=== PATIENT | female | born 1960 | race African-American/Black ===

== ENCOUNTER 2018-01-25 11:08 | Inpatient (IN) | payer MEDICARE, MEDICAID ==
--- NOTE | 2018-01-25 12:10 | ED Physician Chart ---
ED Chief Complaint/HPI - Patient Information Date Seen:: 01/25/18 Time Seen:: 11:50 Chief Complaint:: increased agitation History of Present Illness:: Patient has reportedly been increasingly agitated and striking at the staff [facility]. She denies ever having struck anyone. Patient had her G-tube removed 2 days ago. Allergies:: Allergies Allergy/AdvReac Type Severity Reaction Status Date / Time No Known Allergies Allergy Verified 01/25/18 11:49 Vitals:: Vital Signs - 8 hr 01/25/18 11:49 Temp 97.8 F HR 79 RR 16 BP 101/75 O2 Sat % 98 Historian:: Patient Review:: Transfer documents Reviewed ED Review of Systems - Review of Systems General/Constitutional: No fever, No chills Skin: No skin lesions Head: No headache Eyes: No loss of vision ENT: No earache Neck: No neck pain, No swelling Cardio Vascular: No chest pain, No palpitations GI: No nausea, No vomiting, No diarrhea G/U: No dysuria Musculoskeletal: No bone or joint pain, No back pain, No muscle pain Psychiatric: No prior psych history Hematopoietic: No bruising Allergic/Immuno: No urticaria Neurological: No syncope, No focal symptoms ED Past Medical History - Past Medical History Past Medical History: PUD/GERD, Other (anxiety; dysphagia) Family History: HTN Social History: Non Smoker, No Alcohol Surgical History: Hysterectomy, Psychiatricy History: Other (anxiety) Medication: Reviewed ED Physical Exam - Physical Examination General/Constitutional: Awake, Well-developed, well-nourished, Alert, No distress, GCS 15, Non-toxic appearing, Ambulatory Other Gen/Cons comments:: Patient was alert and oriented to the correct date Head: Atraumatic Eyes: Lids, conjuctiva normal, PERRL, EOMI Skin: Nl inspection, No rash, No skin lesions, No ecchymosis, Well hydrated, No lymphadenopathy ENMT: External ears, nose nl, Nasal exam nl Other ENMT comments:: No upper teeth; 3 out of 4 peridontal disease lower gum Neck: Nontender, Full ROM w/o pain, No JVD, No nuchal rigidity, No bruit, No mass, No stridor Respiratory: Nl effort/Exclusion, Clear to Auscultation, No Wheeze/Rhonchi/Rales Cardio Vascular: RRR, No murmur, gallop, rubs, NL S1 S2 GI: No tenderness/rebounding/guarding, No organomegaly, No hernia, Normal BS's, Nondistended, No mass/bruits, No McBurney tenderness : No CVA tenderness Extremities: No tenderness or effusion, Full ROM, normal strength in all extremities, No edema, Normal digits & nails Neuro/Psych: Alert/oriented, DTR's symmetric, Normal sensory exam, Normal motor strength, Judgement/insight normal, Mood normal, Normal gait, No focal deficits Misc: Normal back, No paraspinal tenderness ED Labs/Radiology/EKG Results - Lab Results Results: Laboratory Results - last 24 hr 01/25/18 01/25/18 01/25/18 11:50 12:17 12:17 WBC 5.4 RBC 4.75 Hgb 14.5 Hct 43.9 MCV 92.5 MCH 30.6 MCHC Differential 33.1 RDW 11.4 L Plt Count 371 MPV 7.7 Neutrophils % 45.0 Lymphocytes % 45.3 Monocytes % 6.6 Eosinophils % 2.4 Basophils % 0.7 Sodium 136 Potassium 4.2 Chloride 104 Carbon Dioxide 24.4 Anion Gap 11.8 BUN 11 Creatinine 0.5 L Est GFR ( Amer) > 60.0 Est GFR (Non-Af Amer) > 60.0 BUN/Creatinine Ratio 22.0 Glucose 102 Calcium 9.7 Total Bilirubin 0.3 AST 14 ALT 10 Alkaline Phosphatase 68 Total Protein 7.7 Albumin 4.2 Globulin 3.5 Albumin/Globulin Ratio 1.2 Triglycerides 84 Cholesterol 143 LDL Cholesterol Direct 92 HDL Cholesterol 37 Urine Source CLEAN C Urine Color YELLOW Urine Clarity CLEAR Urine pH 7.0 Ur Specific [place] 1.010 Urine Protein NEGATIVE Urine Glucose (UA) NEGATIVE Urine Ketones NEGATIVE Urine Blood NEGATIVE Urine Nitrate NEGATIVE Urine Bilirubin NEGATIVE Urine Urobilinogen 1.0 Ur Leukocyte Esterase TRACE H Urine RBC NONE SEEN Urine WBC 2-5 Ur Epithelial Cells OCCASIONAL Urine Bacteria FEW - EKG Interpretations Rate & Rhythm: normal sinus rhythm with a rate of 68 Loyal: normal Comments:: Concave ST elevations ED Septic Shock - . Is Septic Shock (SBP<90, OR Lactate>4 mmol\L) present?: No - <6hrs of presentation: Vital Signs: Vital Signs - 8 hr 01/25/18 11:49 Temp 97.8 F HR 79 RR 16 BP 101/75 O2 Sat % 98 ED Reassessment (Disposition) - Reassessment Reassessment Condition:: Unchanged - Diagnosis Diagnosis:: Agitation; history of anxiety - Patient Disposition Admitted to:: [facility] Admitting Medical Physician:: Lara Brandt Admitting Psych Physician:: Cynthia Barcenas
[2018-01-25 12:23] LABS: % BASOPHILS 0.7 % (0.0-2.0); % EOSINOPHILS 2.4 % (0.0-5.0); % LYMPHOCYTES 45.3 % (20.0-50.0); % MONOCYTES 6.6 % (2.0-10.0); EOSINOPHILE ABSOLUTE 0.1 Th/cmm (0.1-0.4); HEMATOCRIT 43.9 % (41.0-60); HEMOGLOBIN 14.5 gm/dL (12-16); LYMPHOCYTE ABSOLUTE 2.5 Th/cmm (1.5-3.0); MEAN CELL VOLUME 92.5 fl (81-100); MEAN CORPUSCULAR HEMOGLOBIN 30.6 pg (27.0-31.0); MEAN CORPUSCULAR HGB CONC 33.1 pg (28.0-36.0); MEAN PLATELET VOLUME 7.7 fl; MONOCYTE ABSOLUTE 0.4 Th/cmm (0.3-1.0); NEUTROPHILE ABSOLUTE 2.4 Th/cmm (1.8-8.0); PLATELET COUNT 371 Th/cmm (150-400); RED BLOOD COUNT 4.75 Mil/cmm (3.80-5.10); RED CELL DISTRIBUTION WIDTH 11.4 % (11.5-20.0); WHITE BLOOD COUNT 5.4 Th/cmm (4.8-10.8)
[2018-01-25 12:32] LABS: URINE SOURCE CLEAN C
[2018-01-25 12:40] LABS: ALB/GLOB RATIO 1.2 (1.0-1.8); ALBUMIN 4.2 gm/dL (3.7-5.3); ALKALINE PHOSPHATASE 68 U/L (34-104); ANION GAP 11.8 (7.0-16.0); BILIRUBIN,TOTAL 0.3 mg/dL (0.3-1.0); BUN - UREA NITROGEN 11 mg/dL (7-25); CALCIUM SERUM 9.7 mg/dL (8.6-10.3); CARBON DIOXIDE 24.4 mEq/L (21.0-31.0); CHLORIDE 104 mEq/L (98-107); CHOLESTEROL 143 mg/dL (<200); CREATININE - SERUM 0.5 mg/dL (0.6-1.2); GFR AFRICAN-AMERICAN > 60.0 ml/min (>90); GFR NON AFRICAN-AMERICAN > 60.0 ml/min; GLUCOSE 102 mg/dL (70-105); HDL -HIGH DENSITY LIPOPROTEIN 37 mg/dL (23-92); POTASSIUM SERUM 4.2 mEq/L (3.5-5.1); SGOT 14 U/L (13-39); SGPT/ALT 10 U/L (7-52); SODIUM SERUM 136 mEq/L (136-145); TOTAL PROTEIN,SERUM 7.7 gm/dL (6.0-8.3); TRIGLYCERIDES 84 mg/dL (<150)
[2018-01-25 12:41] LABS: URINE BILIRUBIN NEGATIVE (NEGATIVE); URINE BLOOD NEGATIVE (NEGATIVE); URINE GLUCOSE (UA) NEGATIVE (NEGATIVE); URINE KETONE NEGATIVE (NEGATIVE); URINE LEUKOCYTE ESTERASE TRACE (NEGATIVE); URINE MICROSCOPIC INDICATED? YES; URINE NITRATE NEGATIVE (NEGATIVE); URINE PROTEIN NEGATIVE (NEGATIVE)
[2018-01-25 12:43] LABS: URINE CLARITY CLEAR (CLEAR); URINE COLOR YELLOW
[2018-01-25 12:51] LABS: URINE BACTERIA FEW /hpf (NONE SEEN); URINE EPITHELIAL CELLS OCCASIONAL /lpf (FEW); URINE RBC NONE SEEN /hpf (0-5)
[2018-01-25] MEDS ORDERED: Magnesium Hydroxide (MOM) 30 mL UDC PO PRN ×2 (17:05→19:13)
[2018-01-25] MEDS ORDERED: Maalox 30 mL Cup PO PRN (17:05)
[2018-01-25 17:13] VITALS: BP 112/76
[2018-01-25] MEDS ORDERED: Hydrocodone/APAP 5mg/325mg Tab PO PRN (19:13)
[2018-01-25] MEDS: Saline 0.65% Nasal Spray NS SCH (21:17)
[2018-01-26] MEDS: Saline 0.65% Nasal Spray NS SCH ×6 (02:42→20:38)
[2018-01-26] MEDS: Pantoprazole 40 mg EC Tab PO SCH (06:45)
[2018-01-26] MEDS ORDERED: Non-Formulary Item 1 EA (Multivitamin [Multivitamins] 1 TAB) PO SCH (09:00)
[2018-01-26] MEDS ORDERED: Non-Formulary Item 1 EA (Cran/Vitc/Mannose/Fos/Bromeln [Uti-Stat Liquid] 30 ML) PO SCH (09:00)
[2018-01-26] MEDS: Chlorhexidine Gluconate 0.12% 480mL Bottle MM SCH ×2 (09:09→16:46)
[2018-01-26] MEDS: Multivitamin Tab PO SCH (09:10)
--- NOTE | 2018-01-26 16:15 | History & Physical ---
ADMIT DATE: 01/26/2018 CHIEF COMPLAINT: Agitation. HISTORY OF PRESENT ILLNESS: This is a 57-year-old female who is admitted to the Geropsych Unit who has been having a 1-day history of agitation and combativeness towards nursing staff at the nursing facility. PAST MEDICAL HISTORY: GERD, anxiety, dysphagia. FAMILY HISTORY: Noncontributory. SOCIAL HISTORY: The patient is a custodial resident. SURGICAL HISTORY: Hysterectomy, . MEDICATIONS: See medication list. REVIEW OF SYSTEMS: GENERAL: Denies any fevers and chills. CARDIOVASCULAR: Denies chest pain. RESPIRATORY: Denies shortness of breath. GASTROINTESTINAL: Denies nausea, vomiting, abdominal pain. GENITOURINARY: Denies increased frequency or dysuria. NEUROLOGIC: No headaches, seizures, or syncope. All other systems are reviewed and are negative. PHYSICAL EXAMINATION: GENERAL: The patient is a well-developed, well nourished, in no apparent distress. VITAL SIGNS: Temperature 98.0, heart rate 77, blood pressure 101/60, respirations 18, O2 saturation 100%. HEENT: Head; normocephalic, atraumatic. NECK: Supple. No mass. LUNGS: Clear bilaterally. HEART: Regular rate and rhythm. ABDOMEN: Soft, nontender. LABORATORY DATA: WBC 5.4, H and H 14.5 and 43.9, platelet of 371. Sodium 136, potassium 4.2, chloride 104, BUN 11, creatinine 0.5. ASSESSMENT: Agitation, gastroesophageal reflux disease, anxiety. PLAN: The patient is to continue medications from custodial. Fall precautions will be initiated. We will get patient's hemoglobin A1c. We will continue to monitor this patient. JOB# [id number]
[2018-01-27] MEDS: Saline 0.65% Nasal Spray NS SCH ×5 (00:08→15:25)
[2018-01-27] MEDS: Pantoprazole 40 mg EC Tab PO SCH (06:57)
[2018-01-27] MEDS: Multivitamin Tab PO SCH (08:34)
[2018-01-27] MEDS: Chlorhexidine Gluconate 0.12% 480mL Bottle MM SCH ×2 (09:16→16:16)
--- NOTE | 2018-01-27 16:11 | Internal Medicine Prog Note ---
Internal Medicine Subjective - Subjective Service Date: 01/27/18 Patient seen and examined:: with staff Patient is:: awake Per staff patient has:: tolerating meds Internal Medicine Objective - Results Result Diagrams: 01/25/18 12:17 01/25/18 12:17 Recent Labs: Laboratory Last Values WBC 5.4 Th/cmm (4.8-10.8) 01/25/18 12:17 RBC 4.75 Mil/cmm (3.80-5.10) 01/25/18 12:17 Hgb 14.5 gm/dL (12-16) 01/25/18 12:17 Hct 43.9 % (41.0-60) 01/25/18 12:17 MCV 92.5 fl (81-100) 01/25/18 12:17 MCH 30.6 pg (27.0-31.0) 01/25/18 12:17 MCHC Differential 33.1 pg (28.0-36.0) 01/25/18 12:17 RDW 11.4 % (11.5-20.0) L 01/25/18 12:17 Plt Count 371 Th/cmm (150-400) 01/25/18 12:17 MPV 7.7 fl 01/25/18 12:17 Neutrophils % 45.0 % (40.0-80.0) 01/25/18 12:17 Lymphocytes % 45.3 % (20.0-50.0) 01/25/18 12:17 Monocytes % 6.6 % (2.0-10.0) 01/25/18 12:17 Eosinophils % 2.4 % (0.0-5.0) 01/25/18 12:17 Basophils % 0.7 % (0.0-2.0) 01/25/18 12:17 Sodium 136 mEq/L (136-145) 01/25/18 12:17 Potassium 4.2 mEq/L (3.5-5.1) 01/25/18 12:17 Chloride 104 mEq/L (98-107) 01/25/18 12:17 Carbon Dioxide 24.4 mEq/L (21.0-31.0) 01/25/18 12:17 Anion Gap 11.8 (7.0-16.0) 01/25/18 12:17 BUN 11 mg/dL (7-25) 01/25/18 12:17 Creatinine 0.5 mg/dL (0.6-1.2) L 01/25/18 12:17 Est GFR ( Amer) > 60.0 ml/min (>90) 01/25/18 12:17 Est GFR (Non-Af Amer) > 60.0 ml/min 01/25/18 12:17 BUN/Creatinine Ratio 22.0 01/25/18 12:17 Glucose 102 mg/dL (70-105) 01/25/18 12:17 Calcium 9.7 mg/dL (8.6-10.3) 01/25/18 12:17 Total Bilirubin 0.3 mg/dL (0.3-1.0) 01/25/18 12:17 AST 14 U/L (13-39) 01/25/18 12:17 ALT 10 U/L (7-52) 01/25/18 12:17 Alkaline Phosphatase 68 U/L (34-104) 01/25/18 12:17 Total Protein 7.7 gm/dL (6.0-8.3) 01/25/18 12:17 Albumin 4.2 gm/dL (3.7-5.3) 01/25/18 12:17 Globulin 3.5 gm/dL 01/25/18 12:17 Albumin/Globulin Ratio 1.2 (1.0-1.8) 01/25/18 12:17 Triglycerides 84 mg/dL (<150) 01/25/18 12:17 Cholesterol 143 mg/dL (<200) 01/25/18 12:17 LDL Cholesterol Direct 92 mg/dL (75-193) 01/25/18 12:17 HDL Cholesterol 37 mg/dL (23-92) 01/25/18 12:17 TSH 0.97 uIU/ml (0.34-5.60) 01/25/18 12:17 Urine Source CLEAN C 01/25/18 11:50 Urine Color YELLOW 01/25/18 11:50 Urine Clarity CLEAR (CLEAR) 01/25/18 11:50 Urine pH 7.0 (4.6 - 8.0) 01/25/18 11:50 Ur Specific [place] 1.010 (1.005-1.030) 01/25/18 11:50 Urine Protein NEGATIVE mg/dL (NEGATIVE) 01/25/18 11:50 Urine Glucose (UA) NEGATIVE mg/dL (NEGATIVE) 01/25/18 11:50 Urine Ketones NEGATIVE mg/dL (NEGATIVE) 01/25/18 11:50 Urine Blood NEGATIVE (NEGATIVE) 01/25/18 11:50 Urine Nitrate NEGATIVE (NEGATIVE) 01/25/18 11:50 Urine Bilirubin NEGATIVE (NEGATIVE) 01/25/18 11:50 Urine Urobilinogen 1.0 E.U./dL (0.2 - 1.0) 01/25/18 11:50 Ur Leukocyte Esterase TRACE (NEGATIVE) H 01/25/18 11:50 Urine RBC NONE SEEN /hpf (0-5) 01/25/18 11:50 Urine WBC 2-5 /hpf (0-5) 01/25/18 11:50 Ur Epithelial Cells OCCASIONAL /lpf (FEW) 01/25/18 11:50 Urine Bacteria FEW /hpf (NONE SEEN) 01/25/18 11:50 RPR NONREACTIVE (NONREACTIVE) 01/25/18 12:17 - Physical Exam Vitals and I&O: Vital Signs Temp 98.0 F 01/27/18 14:48 Pulse 74 01/27/18 14:48 Resp 20 01/27/18 14:48 BP 118/69 01/27/18 14:48 Pulse Ox 97 01/27/18 14:48 Intake & Output 01/26/18 01/27/18 01/27/18 18:59 06:59 18:59 Intake Total 1200 Balance 1200 Intake: Oral 1200 Other: # Bowel Movements 1 Active Medications: Current Medications Acetaminophen (Tylenol) 650 mg PO Q4HR PRN PRN Reason: Pain (Mild) Stop: 03/26/18 19:12 Acetaminophen/Hydrocodone Bitart ([place] 5mg/325mg) 1 tab PO Q6HR PRN PRN Reason: Pain (Moderate) Stop: 03/26/18 19:12 Al Hydrox/Mg Hydrox/Simethicone (Maalox) 30 ml PO Q4HR PRN PRN Reason: GI DISTRESS Stop: 03/26/18 17:04 Chlorhexidine Gluconate (Peridex) 15 ml MM BID [facility] Stop: 03/27/18 08:59 Last Admin: 01/27/18 09:16 Dose: Not Given Docusate Sodium (Colace) 100 mg PO DAILY [facility] Stop: 03/27/18 08:59 Last Admin: 01/27/18 08:34 Dose: 100 mg Ibuprofen (Motrin) 800 mg PO Q8HR PRN PRN Reason: Pain (Mild) Stop: 03/26/18 19:12 Magnesium Hydroxide (Milk Of Magnesia) 30 ml PO PRN PRN PRN Reason: Constipation Stop: 03/26/18 19:12 Metoclopramide HCl (Reglan) 10 mg PO TID [facility] Stop: 03/26/18 20:59 Last Admin: 01/27/18 15:11 Dose: Not Given Multivitamins/Vitamin C (Theragran) 1 tab PO DAILY [facility] Stop: 03/27/18 08:59 Last Admin: 01/27/18 08:34 Dose: 1 tab Pantoprazole Sodium (Protonix) 40 mg PO QDAC [facility] Stop: 03/27/18 07:29 Last Admin: 01/27/18 06:57 Dose: 40 mg Quetiapine Fumarate (Seroquel) 12.5 mg PO BID [facility]; Protocol Stop: 03/27/18 16:59 Last Admin: 01/27/18 08:35 Dose: 12.5 mg Senna (Senna) 8.6 mg PO HS [facility] Stop: 03/26/18 20:59 Last Admin: 01/26/18 20:25 Dose: 8.6 mg Sodium Chloride ([place] Nasal [place]) 1 spr NS Q4HR [facility] Stop: 03/26/18 19:59 Last Admin: 01/27/18 15:25 Dose: Not Given Trazodone HCl (Desyrel) 50 mg PO HS [facility]; Protocol Stop: 03/26/18 20:59 Last Admin: 01/26/18 20:25 Dose: 50 mg Zolpidem Tartrate (Ambien) 5 mg PO HS PRN PRN Reason: Insomnia Stop: 03/26/18 17:04 General: alert HEENT: NC/AT, PERRLA Neck: Supple Lungs: CTAB Cardiovascular: RRR, Normal S1 Abdomen: soft, non-tender Internal Medicine Assmt/Plan - Assessment Assessment: agitation gerd anxiety - Plan Plan: fall precautions cpm
[2018-01-28] MEDS: Pantoprazole 40 mg EC Tab PO SCH (06:52)
[2018-01-28] MEDS: Saline 0.65% Nasal Spray NS SCH ×2 (08:10→12:17)
[2018-01-28] MEDS: Multivitamin Tab PO SCH (08:50)
[2018-01-28] MEDS: Chlorhexidine Gluconate 0.12% 480mL Bottle MM SCH (08:55)
--- NOTE | 2018-01-28 13:25 | Internal Medicine Prog Note ---
Internal Medicine Subjective - Subjective Service Date: 01/28/18 Patient is:: awake Per staff patient has:: tolerating meds Internal Medicine Objective - Results Result Diagrams: 01/25/18 12:17 01/25/18 12:17 Recent Labs: Laboratory Last Values WBC 5.4 Th/cmm (4.8-10.8) 01/25/18 12:17 RBC 4.75 Mil/cmm (3.80-5.10) 01/25/18 12:17 Hgb 14.5 gm/dL (12-16) 01/25/18 12:17 Hct 43.9 % (41.0-60) 01/25/18 12:17 MCV 92.5 fl (81-100) 01/25/18 12:17 MCH 30.6 pg (27.0-31.0) 01/25/18 12:17 MCHC Differential 33.1 pg (28.0-36.0) 01/25/18 12:17 RDW 11.4 % (11.5-20.0) L 01/25/18 12:17 Plt Count 371 Th/cmm (150-400) 01/25/18 12:17 MPV 7.7 fl 01/25/18 12:17 Neutrophils % 45.0 % (40.0-80.0) 01/25/18 12:17 Lymphocytes % 45.3 % (20.0-50.0) 01/25/18 12:17 Monocytes % 6.6 % (2.0-10.0) 01/25/18 12:17 Eosinophils % 2.4 % (0.0-5.0) 01/25/18 12:17 Basophils % 0.7 % (0.0-2.0) 01/25/18 12:17 Sodium 136 mEq/L (136-145) 01/25/18 12:17 Potassium 4.2 mEq/L (3.5-5.1) 01/25/18 12:17 Chloride 104 mEq/L (98-107) 01/25/18 12:17 Carbon Dioxide 24.4 mEq/L (21.0-31.0) 01/25/18 12:17 Anion Gap 11.8 (7.0-16.0) 01/25/18 12:17 BUN 11 mg/dL (7-25) 01/25/18 12:17 Creatinine 0.5 mg/dL (0.6-1.2) L 01/25/18 12:17 Est GFR ( Amer) > 60.0 ml/min (>90) 01/25/18 12:17 Est GFR (Non-Af Amer) > 60.0 ml/min 01/25/18 12:17 BUN/Creatinine Ratio 22.0 01/25/18 12:17 Glucose 102 mg/dL (70-105) 01/25/18 12:17 Calcium 9.7 mg/dL (8.6-10.3) 01/25/18 12:17 Total Bilirubin 0.3 mg/dL (0.3-1.0) 01/25/18 12:17 AST 14 U/L (13-39) 01/25/18 12:17 ALT 10 U/L (7-52) 01/25/18 12:17 Alkaline Phosphatase 68 U/L (34-104) 01/25/18 12:17 Total Protein 7.7 gm/dL (6.0-8.3) 01/25/18 12:17 Albumin 4.2 gm/dL (3.7-5.3) 01/25/18 12:17 Globulin 3.5 gm/dL 01/25/18 12:17 Albumin/Globulin Ratio 1.2 (1.0-1.8) 01/25/18 12:17 Triglycerides 84 mg/dL (<150) 01/25/18 12:17 Cholesterol 143 mg/dL (<200) 01/25/18 12:17 LDL Cholesterol Direct 92 mg/dL (75-193) 01/25/18 12:17 HDL Cholesterol 37 mg/dL (23-92) 01/25/18 12:17 TSH 0.97 uIU/ml (0.34-5.60) 01/25/18 12:17 Urine Source CLEAN C 01/25/18 11:50 Urine Color YELLOW 01/25/18 11:50 Urine Clarity CLEAR (CLEAR) 01/25/18 11:50 Urine pH 7.0 (4.6 - 8.0) 01/25/18 11:50 Ur Specific [place] 1.010 (1.005-1.030) 01/25/18 11:50 Urine Protein NEGATIVE mg/dL (NEGATIVE) 01/25/18 11:50 Urine Glucose (UA) NEGATIVE mg/dL (NEGATIVE) 01/25/18 11:50 Urine Ketones NEGATIVE mg/dL (NEGATIVE) 01/25/18 11:50 Urine Blood NEGATIVE (NEGATIVE) 01/25/18 11:50 Urine Nitrate NEGATIVE (NEGATIVE) 01/25/18 11:50 Urine Bilirubin NEGATIVE (NEGATIVE) 01/25/18 11:50 Urine Urobilinogen 1.0 E.U./dL (0.2 - 1.0) 01/25/18 11:50 Ur Leukocyte Esterase TRACE (NEGATIVE) H 01/25/18 11:50 Urine RBC NONE SEEN /hpf (0-5) 01/25/18 11:50 Urine WBC 2-5 /hpf (0-5) 01/25/18 11:50 Ur Epithelial Cells OCCASIONAL /lpf (FEW) 01/25/18 11:50 Urine Bacteria FEW /hpf (NONE SEEN) 01/25/18 11:50 RPR NONREACTIVE (NONREACTIVE) 01/25/18 12:17 - Physical Exam Vitals and I&O: Vital Signs Temp 97.6 F 01/28/18 06:43 Pulse 88 01/28/18 06:43 Resp 19 01/28/18 06:43 BP 105/70 01/28/18 06:43 Pulse Ox 96 01/28/18 06:43 Intake & Output 01/27/18 01/28/18 01/28/18 18:59 06:59 18:59 Intake Total 240 120 Balance 240 120 Intake: Oral 240 120 Other: # Voids 1 2 # Bowel Movements 0 Active Medications: Current Medications Acetaminophen (Tylenol) 650 mg PO Q4HR PRN PRN Reason: Pain (Mild) Stop: 03/26/18 19:12 Acetaminophen/Hydrocodone Bitart ([place] 5mg/325mg) 1 tab PO Q6HR PRN PRN Reason: Pain (Moderate) Stop: 03/26/18 19:12 Al Hydrox/Mg Hydrox/Simethicone (Maalox) 30 ml PO Q4HR PRN PRN Reason: GI DISTRESS Stop: 03/26/18 17:04 Chlorhexidine Gluconate (Peridex) 15 ml MM BID [facility] Stop: 03/27/18 08:59 Last Admin: 01/28/18 08:55 Dose: Not Given Docusate Sodium (Colace) 100 mg PO DAILY [facility] Stop: 03/27/18 08:59 Last Admin: 01/28/18 08:50 Dose: 100 mg Ibuprofen (Motrin) 800 mg PO Q8HR PRN PRN Reason: Pain (Mild) Stop: 03/26/18 19:12 Magnesium Hydroxide (Milk Of Magnesia) 30 ml PO PRN PRN PRN Reason: Constipation Stop: 03/26/18 19:12 Metoclopramide HCl (Reglan) 10 mg PO TID [facility] Stop: 03/26/18 20:59 Last Admin: 01/28/18 08:50 Dose: 10 mg Multivitamins/Vitamin C (Theragran) 1 tab PO DAILY [facility] Stop: 03/27/18 08:59 Last Admin: 01/28/18 08:50 Dose: 1 tab Pantoprazole Sodium (Protonix) 40 mg PO QDAC [facility] Stop: 03/27/18 07:29 Last Admin: 01/28/18 06:52 Dose: 40 mg Quetiapine Fumarate (Seroquel) 12.5 mg PO BID [facility]; Protocol Stop: 03/27/18 16:59 Last Admin: 01/28/18 08:50 Dose: 12.5 mg Senna (Senna) 8.6 mg PO HS [facility] Stop: 03/26/18 20:59 Last Admin: 01/27/18 21:28 Dose: 8.6 mg Sodium Chloride ([place] Nasal [place]) 1 spr NS Q4HR [facility] Stop: 03/26/18 19:59 Last Admin: 01/28/18 12:17 Dose: Not Given Trazodone HCl (Desyrel) 50 mg PO HS [facility]; Protocol Stop: 03/26/18 20:59 Last Admin: 01/27/18 21:28 Dose: 50 mg Zolpidem Tartrate (Ambien) 5 mg PO HS PRN PRN Reason: Insomnia Stop: 03/26/18 17:04 General: alert HEENT: NC/AT, PERRLA Neck: Supple Lungs: CTAB Cardiovascular: RRR, Normal S1 Abdomen: soft, non-tender Internal Medicine Assmt/Plan - Assessment Assessment: agitation gerd anxiety - Plan Plan: fall precautions cpm
--- NOTE | 2018-01-28 21:33 | Progress Notes ---
DATE: 01/27/2018 SUBJECTIVE: Chart reviewed and the patient interviewed. Also, discussed the patient's condition with the staff and reviewed records and labs. The patient is still in a depressed mood. The patient also is still withdrawn and interacting minimally with others. The patient denies any intention to harm herself or others. She also is still feeling hopeless and helpless. The patient continued to take Seroquel 12.5 mg twice a day and trazodone 50 mg at bedtime with no side effects. She still has episodes of agitation. ASSESSMENT: The patient is still depressed and also still has episodes of agitation. TREATMENT PLAN: Continue to monitor her behavior and her condition closely. Also, considering the use of antidepressant medications and at the same time, continue to monitor her behavior closely. [facility]# [id number]
--- NOTE | 2018-01-28 22:13 | Progress Notes ---
DATE: 01/28/2018 DATE: 01/28/2018 SUBJECTIVE: Chart reviewed and the patient interviewed. Also discussed the patient's condition with the staff and reviewed records and labs. The patient still seems to be weak and she is still anxious. The patient also is still interacting minimally with others. The patient also still have episodes of agitation and aggression, but seems to be less than before. Otherwise, the patient is compliant with taking her medications with no side effects of medications. ASSESSMENT: The patient is still agitated and seems to be depressed. TREATMENT PLAN: Continue to monitor her behavior and her condition closely and continue to work on adjusting psychotropic medications. Also evaluating possible use of antidepressant medications. JOB# [id number]
--- NOTE | 2018-01-28 22:32 | Psychiatric Evaluation ---
DATE OF SERVICE: PSYCHIATRIC INITIAL EVALUATION AND MENTAL STATUS EXAM PATIENT'S AGE: 57-year-old SEX: Female. PHYSICIAN: Dr. Barceans. CHIEF COMPLAINT: Agitation and striking out at staff. HISTORY OF PRESENT ILLNESS: The patient is a 57-year-old female who lives in [facility]. The patient has been increasingly agitated and has been striking out at staff and has not been able to follow directions. The patient also has been angry and has been in irritable mood. She also has been suspicious. The patient was transferred to the hospital. She is still increasing agitated and in irritable and angry mood and she is still aggressive. PAST PSYCHIATRIC HISTORY: The patient has history of psychosis and the patient was not taking any psychotropic medications prior to her admission. PAST MEDICAL HISTORY: The patient has a history of gastroesophageal reflux disease. SOCIAL HISTORY: The patient lives in [facility]. No known alcohol or drug use. No legal issues or abuse issues. ALLERGIES: No known allergies. MENTAL STATUS EXAMINATION: The patient appears slightly older than her stated age. Irritable mood. Angry and anxious. Thought process is circumstantial, but no flight of ideas. The patient denies hallucinations or delusions or suicidal, but the patient seems to be paranoid. She denies any suicidal or homicidal ideations. The patient is alert and oriented to time, place, person, and situation. Intact immediate, recent and remote memories. Poor insight and poor judgment. ASSESSMENT: PRIMARY DIAGNOSIS: Unspecified psychosis. TREATMENT PLAN: Continue to monitor her behavior and her condition closely. We will add Seroquel in a dose of 12.5 mg twice a day and will adjust the dose. ESTIMATED LENGTH OF STAY: 5-7 days. THE PATIENT'S STRENGTHS AND WEAKNESSES: The patient's general fund of knowledge is fair. Weaknesses is her poor impulse control and poor judgment. AFTER DISCHARGE PLAN: Outpatient treatment and followup will continue as an outpatient. CRITERIA FOR DISCHARGE: The patient will not be agitated or aggressive and stabilize psychotropic medications and establish outpatient treatment plans. JOB# [id number]
[2018-01-29] MEDS: Pantoprazole 40 mg EC Tab PO SCH (06:53)
[2018-01-29] MEDS: Saline 0.65% Nasal Spray NS SCH ×3 (09:05→16:03)
[2018-01-29] MEDS: Chlorhexidine Gluconate 0.12% 480mL Bottle MM SCH ×2 (09:06→17:04)
[2018-01-29] MEDS: Multivitamin Tab PO SCH (09:06)
--- NOTE | 2018-01-29 23:25 | Progress Notes ---
DATE: 01/29/[address] Barcenas. Case was discussed with staff of the patient, reviewed records. This is a 57-year-old female who was admitted on 01/25/2018 because of agitation, striking out at staff. She came from [facility]. She has been increasing agitation, angry, irritable, suspicious, and paranoid with a history of psychosis. The patient also has a history of gastroesophageal reflux disease. No substance abuse problem. The patient when I talked her today, she complained that she is feeling ____ from her waist below. When I asked the staff to call Dr. Brandt to examine the patient and address her issues. The patient continues to be irritable, unpredictable, impulsive. She is on Seroquel 12.5 mg twice a day with no side effects, no sedation, no nausea, no extrapyramidal symptoms. We will continue to work with the patient in group therapy, milieu therapy, and adjust the medications as needed. JOB# [id number]
[2018-01-30] MEDS: Pantoprazole 40 mg EC Tab PO SCH (06:40)
[2018-01-30] MEDS: Saline 0.65% Nasal Spray NS SCH ×3 (08:47→16:29)
[2018-01-30] MEDS: Chlorhexidine Gluconate 0.12% 480mL Bottle MM SCH ×2 (08:47→17:30)
[2018-01-30] MEDS: Multivitamin Tab PO SCH (09:48)
--- NOTE | 2018-01-30 17:08 | Progress Notes ---
DATE: 01/30/2018 Case was discussed with staff of the patient, reviewed records. Yesterday the patient had a specific complaint about feeling numb from the waist below. When I asked the staff to call Dr. Brandt who is taking care of her. However, apparently she was not seen until today, so I asked the nurse who called him yesterday to try to call him again to make sure the patient is being taken care of still she is oriented to place, person and time. Continues to have the same complaint. I asked the nurse to call him again, Dr. Brandt. She is compliant with the medication with no side effects, no sedation, no nausea and no extrapyramidal symptoms. We will continue the patient group therapy, milieu therapy and adjust the mediations as needed. JOB# [id number]
[2018-01-31] MEDS: Pantoprazole 40 mg EC Tab PO SCH (06:47)
[2018-01-31] MEDS: Saline 0.65% Nasal Spray NS SCH ×4 (09:46→20:23)
[2018-01-31] MEDS: Chlorhexidine Gluconate 0.12% 480mL Bottle MM SCH ×2 (09:46→17:32)
[2018-01-31] MEDS: Multivitamin Tab PO SCH (09:47)
--- NOTE | 2018-01-31 15:16 | Internal Medicine Prog Note ---
Internal Medicine Subjective - Subjective Service Date: 01/31/18 Patient is:: awake Per staff patient has:: tolerating meds Internal Medicine Objective - Results Result Diagrams: 01/25/18 12:17 01/25/18 12:17 Recent Labs: Laboratory Last Values WBC 5.4 Th/cmm (4.8-10.8) 01/25/18 12:17 RBC 4.75 Mil/cmm (3.80-5.10) 01/25/18 12:17 Hgb 14.5 gm/dL (12-16) 01/25/18 12:17 Hct 43.9 % (41.0-60) 01/25/18 12:17 MCV 92.5 fl (81-100) 01/25/18 12:17 MCH 30.6 pg (27.0-31.0) 01/25/18 12:17 MCHC Differential 33.1 pg (28.0-36.0) 01/25/18 12:17 RDW 11.4 % (11.5-20.0) L 01/25/18 12:17 Plt Count 371 Th/cmm (150-400) 01/25/18 12:17 MPV 7.7 fl 01/25/18 12:17 Neutrophils % 45.0 % (40.0-80.0) 01/25/18 12:17 Lymphocytes % 45.3 % (20.0-50.0) 01/25/18 12:17 Monocytes % 6.6 % (2.0-10.0) 01/25/18 12:17 Eosinophils % 2.4 % (0.0-5.0) 01/25/18 12:17 Basophils % 0.7 % (0.0-2.0) 01/25/18 12:17 Sodium 136 mEq/L (136-145) 01/25/18 12:17 Potassium 4.2 mEq/L (3.5-5.1) 01/25/18 12:17 Chloride 104 mEq/L (98-107) 01/25/18 12:17 Carbon Dioxide 24.4 mEq/L (21.0-31.0) 01/25/18 12:17 Anion Gap 11.8 (7.0-16.0) 01/25/18 12:17 BUN 11 mg/dL (7-25) 01/25/18 12:17 Creatinine 0.5 mg/dL (0.6-1.2) L 01/25/18 12:17 Est GFR ( Amer) > 60.0 ml/min (>90) 01/25/18 12:17 Est GFR (Non-Af Amer) > 60.0 ml/min 01/25/18 12:17 BUN/Creatinine Ratio 22.0 01/25/18 12:17 Glucose 102 mg/dL (70-105) 01/25/18 12:17 Calcium 9.7 mg/dL (8.6-10.3) 01/25/18 12:17 Total Bilirubin 0.3 mg/dL (0.3-1.0) 01/25/18 12:17 AST 14 U/L (13-39) 01/25/18 12:17 ALT 10 U/L (7-52) 01/25/18 12:17 Alkaline Phosphatase 68 U/L (34-104) 01/25/18 12:17 Total Protein 7.7 gm/dL (6.0-8.3) 01/25/18 12:17 Albumin 4.2 gm/dL (3.7-5.3) 01/25/18 12:17 Globulin 3.5 gm/dL 01/25/18 12:17 Albumin/Globulin Ratio 1.2 (1.0-1.8) 01/25/18 12:17 Triglycerides 84 mg/dL (<150) 01/25/18 12:17 Cholesterol 143 mg/dL (<200) 01/25/18 12:17 LDL Cholesterol Direct 92 mg/dL (75-193) 01/25/18 12:17 HDL Cholesterol 37 mg/dL (23-92) 01/25/18 12:17 TSH 0.97 uIU/ml (0.34-5.60) 01/25/18 12:17 Urine Source CLEAN C 01/25/18 11:50 Urine Color YELLOW 01/25/18 11:50 Urine Clarity CLEAR (CLEAR) 01/25/18 11:50 Urine pH 7.0 (4.6 - 8.0) 01/25/18 11:50 Ur Specific [place] 1.010 (1.005-1.030) 01/25/18 11:50 Urine Protein NEGATIVE mg/dL (NEGATIVE) 01/25/18 11:50 Urine Glucose (UA) NEGATIVE mg/dL (NEGATIVE) 01/25/18 11:50 Urine Ketones NEGATIVE mg/dL (NEGATIVE) 01/25/18 11:50 Urine Blood NEGATIVE (NEGATIVE) 01/25/18 11:50 Urine Nitrate NEGATIVE (NEGATIVE) 01/25/18 11:50 Urine Bilirubin NEGATIVE (NEGATIVE) 01/25/18 11:50 Urine Urobilinogen 1.0 E.U./dL (0.2 - 1.0) 01/25/18 11:50 Ur Leukocyte Esterase TRACE (NEGATIVE) H 01/25/18 11:50 Urine RBC NONE SEEN /hpf (0-5) 01/25/18 11:50 Urine WBC 2-5 /hpf (0-5) 01/25/18 11:50 Ur Epithelial Cells OCCASIONAL /lpf (FEW) 01/25/18 11:50 Urine Bacteria FEW /hpf (NONE SEEN) 01/25/18 11:50 RPR NONREACTIVE (NONREACTIVE) 01/25/18 12:17 - Physical Exam Vitals and I&O: Vital Signs Temp 99.5 F 01/31/18 06:33 Pulse 75 01/31/18 06:33 Resp 20 01/31/18 06:33 BP 97/57 01/31/18 06:33 Pulse Ox 94 01/31/18 06:33 Intake & Output 01/30/18 01/31/18 01/31/18 18:59 06:59 18:59 Intake Total 900 120 Balance 900 120 Intake: Oral 900 120 Other: # Voids 3 3 # Bowel Movements 0 0 Active Medications: Current Medications Acetaminophen (Tylenol) 650 mg PO Q4HR PRN PRN Reason: Pain (Mild) Stop: 03/26/18 19:12 Acetaminophen/Hydrocodone Bitart ([place] 5mg/325mg) 1 tab PO Q6HR PRN PRN Reason: Pain (Moderate) Stop: 03/26/18 19:12 Al Hydrox/Mg Hydrox/Simethicone (Maalox) 30 ml PO Q4HR PRN PRN Reason: GI DISTRESS Stop: 03/26/18 17:04 Chlorhexidine Gluconate (Peridex) 15 ml MM BID [facility] Stop: 03/27/18 08:59 Last Admin: 01/31/18 09:46 Dose: Not Given Docusate Sodium (Colace) 100 mg PO DAILY [facility] Stop: 03/27/18 08:59 Last Admin: 01/31/18 09:47 Dose: Not Given Ibuprofen (Motrin) 800 mg PO Q8HR PRN PRN Reason: Pain (Mild) Stop: 03/26/18 19:12 Magnesium Hydroxide (Milk Of Magnesia) 30 ml PO PRN PRN PRN Reason: Constipation Stop: 03/26/18 19:12 Metoclopramide HCl (Reglan) 10 mg PO TID [facility] Stop: 03/26/18 20:59 Last Admin: 01/31/18 14:03 Dose: Not Given Multivitamins/Vitamin C (Theragran) 1 tab PO DAILY [facility] Stop: 03/27/18 08:59 Last Admin: 01/31/18 09:47 Dose: Not Given Olanzapine (Zyprexa Zydis) 5 mg PO BID [facility]; Protocol Stop: 04/01/18 16:59 Pantoprazole Sodium (Protonix) 40 mg PO QDAC [facility] Stop: 03/27/18 07:29 Last Admin: 01/31/18 06:47 Dose: Not Given Senna (Senna) 8.6 mg PO HS [facility] Stop: 03/26/18 20:59 Last Admin: 01/30/18 20:33 Dose: Not Given Sodium Chloride ([place] Nasal [place]) 1 spr NS Q4HR [facility] Stop: 03/26/18 19:59 Last Admin: 01/31/18 14:03 Dose: Not Given Trazodone HCl (Desyrel) 50 mg PO HS [facility]; Protocol Stop: 03/26/18 20:59 Last Admin: 01/30/18 20:33 Dose: Not Given Zolpidem Tartrate (Ambien) 5 mg PO HS PRN PRN Reason: Insomnia Stop: 03/26/18 17:04 General: alert HEENT: NC/AT, PERRLA Neck: Supple Lungs: CTAB Cardiovascular: RRR, Normal S1 Abdomen: soft, non-tender Internal Medicine Assmt/Plan - Assessment Assessment: agitation gerd anxiety - Plan Plan: fall precautions cpm Nutritional Asmnt/Malnutr-PDOC - Dietary Evaluation Malnutrition Findings (Please click <Entered> for more info): Nutritional Asmnt/Malnutrition Start: 01/29/18 17: 15 Text: Status: Complete Freq: Protocol: Document 01/29/18 17:15 LCDARIUSG (Rec: 01/29/18 17:20 [email or web address] [email or web address]) Nutritional Asmnt/Malnutrition Patient General Information Nutritional Screening Moderate Risk Diagnosis psychosis Pertinent Medical Hx/Surgical Hx PUD/GERD, anxiety, dysphagia, hysterectomy, Subjective Information Pt seen lying in bed at time of visit, confused. Pt complained she was not able to take food, medication, body functions decreasing. Spoke with nurses, pt tolerated pureed diet, consumed 100% of breakfast in the morning. Per EMR, PO intake 75-100%, refused few meals since admission. Current Diet Order/ Nutrition Support pureed Pertinent Medications colace, reglan, theragran, protonix, seroquel, senna Pertinent Labs 01/25 Cr 0.5, gluose 102 Nutritional Hx/Data Height 5 ft 2 in Height (Calculated Centimeters) 157.5 Current Weight (lbs) 147 lb Weight (Calculated Kilograms) 66.7 Weight (Calculated Grams) 19729.1 [place] Body Weight 110 Body Mass Index (BMI) 26.9 Weight Status Overweight GI Symptoms GI Symptoms None Last BM 01/26 Difficult in: None Skin Integrity/Comment: intact Current %PO Good (75-100%) Estimated Nutritional Goals BEE in Kcals: Using Current wt Calories/Kcals/Kg 23-27 Kcals Calculated 0561-0963 Protein: Using Current wt Protein g/k.8-1 Protein Calculated 54-67 Fluid: ml 1541-1809ml (1ml/kcal) Nutritional Problem No current Nutrition Prob Problem N/A Malnutrition Alert Is there a minimum of two criteria No selected? Query Text:Check all the applicable criteria. A minimum of two criteria are recommended for diagnosis of either severe or non-severe malnutrition. Intervention/Recommendation Comments 1. Continue with pureed diet as ordered. assist pt with lucien as needed. 2. Monitor PO intake, wt, labs and skin integrity 3. F/U as low risk in 7 days, 02/05, PO check 01/31 Expected Outcomes/Goals Expected Outcomes/Goals 1. PO intake to meet at least 75% of nutritional needs. 2. Wt stability, skin to remain intact, labs to approach WNL.
[2018-01-31] MEDS: OLANZapine 5 mg Oral Disintegrating Tab PO SCH (20:24)
[2018-02-01] MEDS: Saline 0.65% Nasal Spray NS SCH ×5 (00:54→16:15)
--- NOTE | 2018-02-01 05:49 | Progress Notes ---
DATE: SUBJECTIVE: Chart reviewed and the patient interviewed. Also discussed the patient's condition with the staff and reviewed records and labs. The patient said "I feel terrible." The patient is still having episodes of yelling and screaming for no reason. She also suspicious and paranoid. The patient saying that she feels her body "stiff." She also is still in a depressed mood and isolates herself. Also, personal hygiene is still poor. At the same time, the patient is refusing to take Seroquel and she wants to stay by herself in her bed all the time. ASSESSMENT: The patient is still psychotic and depressed. TREATMENT PLAN: Discussed with the patient the importance of taking medications, but the patient is not able to give exact reason for why she is refusing to take medications. I will decrease the Seroquel and change to Zyprexa Zydis, hopefully, that will help the patient with compliance with medications. Also, we will continue to work on behavior modification and followup. JOB# [id number]
[2018-02-01] MEDS: Pantoprazole 40 mg EC Tab PO SCH (06:29)
--- NOTE | 2018-02-01 07:39 | Discharge Summary ---
DATE OF DISCHARGE: 02/01/2018 DATE OF DISCHARGE: 02/01. THE PATIENT'S AGE: 57. SEX: Female. PHYSICIAN: Dr. Barcenas. FINAL DIAGNOSIS/PRIMARY DIAGNOSIS: Unspecified psychosis. REASON FOR HOSPITALIZATION: The patient was admitted to the hospital from [facility] because of increased agitation and striking behavior. HOSPITAL COURSE: The patient continued to be in irritable and angry mood. The patient was started on Zyprexa Zydis in a dose of 5 mg twice a day after she was refusing to take Seroquel. The patient was calmer and was less irritable and less agitated, but compliance with medications is still questionable. She was not aggressive and she wants to stay by herself most of the time. The patient was not suicidal or homicidal and the patient was returned back to [facility]. Physical exam of the patient showed no major medical problems except for gastroesophageal reflux disease. AFTER DISCHARGE PLANS: The patient discharged from the hospital to return to [facility] with plans for followup there. EXPECTED OUTCOME AFTER DISCHARGE: Fair if the patient continued to take her psychotropic medications. [facility]# [id number]
[2018-02-01] MEDS: Multivitamin Tab PO SCH (09:21)
[2018-02-01] MEDS: Chlorhexidine Gluconate 0.12% 480mL Bottle MM SCH ×2 (09:21→16:15)
[2018-02-01] MEDS: OLANZapine 5 mg Oral Disintegrating Tab PO SCH ×2 (09:22→16:15)
--- NOTE | 2018-02-01 15:39 | General Progress Note ---
Subjective - Review of Systems Events since last encounter: in no distress awake alert Objective - Results Result Diagrams: 01/25/18 12:17 01/25/18 12:17 Recent Labs: Laboratory Last Values WBC 5.4 Th/cmm (4.8-10.8) 01/25/18 12:17 RBC 4.75 Mil/cmm (3.80-5.10) 01/25/18 12:17 Hgb 14.5 gm/dL (12-16) 01/25/18 12:17 Hct 43.9 % (41.0-60) 01/25/18 12:17 MCV 92.5 fl (81-100) 01/25/18 12:17 MCH 30.6 pg (27.0-31.0) 01/25/18 12:17 MCHC Differential 33.1 pg (28.0-36.0) 01/25/18 12:17 RDW 11.4 % (11.5-20.0) L 01/25/18 12:17 Plt Count 371 Th/cmm (150-400) 01/25/18 12:17 MPV 7.7 fl 01/25/18 12:17 Neutrophils % 45.0 % (40.0-80.0) 01/25/18 12:17 Lymphocytes % 45.3 % (20.0-50.0) 01/25/18 12:17 Monocytes % 6.6 % (2.0-10.0) 01/25/18 12:17 Eosinophils % 2.4 % (0.0-5.0) 01/25/18 12:17 Basophils % 0.7 % (0.0-2.0) 01/25/18 12:17 Sodium 136 mEq/L (136-145) 01/25/18 12:17 Potassium 4.2 mEq/L (3.5-5.1) 01/25/18 12:17 Chloride 104 mEq/L (98-107) 01/25/18 12:17 Carbon Dioxide 24.4 mEq/L (21.0-31.0) 01/25/18 12:17 Anion Gap 11.8 (7.0-16.0) 01/25/18 12:17 BUN 11 mg/dL (7-25) 01/25/18 12:17 Creatinine 0.5 mg/dL (0.6-1.2) L 01/25/18 12:17 Est GFR ( Amer) > 60.0 ml/min (>90) 01/25/18 12:17 Est GFR (Non-Af Amer) > 60.0 ml/min 01/25/18 12:17 BUN/Creatinine Ratio 22.0 01/25/18 12:17 Glucose 102 mg/dL (70-105) 01/25/18 12:17 Calcium 9.7 mg/dL (8.6-10.3) 01/25/18 12:17 Total Bilirubin 0.3 mg/dL (0.3-1.0) 01/25/18 12:17 AST 14 U/L (13-39) 01/25/18 12:17 ALT 10 U/L (7-52) 01/25/18 12:17 Alkaline Phosphatase 68 U/L (34-104) 01/25/18 12:17 Total Protein 7.7 gm/dL (6.0-8.3) 01/25/18 12:17 Albumin 4.2 gm/dL (3.7-5.3) 01/25/18 12:17 Globulin 3.5 gm/dL 01/25/18 12:17 Albumin/Globulin Ratio 1.2 (1.0-1.8) 01/25/18 12:17 Triglycerides 84 mg/dL (<150) 01/25/18 12:17 Cholesterol 143 mg/dL (<200) 01/25/18 12:17 LDL Cholesterol Direct 92 mg/dL (75-193) 01/25/18 12:17 HDL Cholesterol 37 mg/dL (23-92) 01/25/18 12:17 TSH 0.97 uIU/ml (0.34-5.60) 01/25/18 12:17 Urine Source CLEAN C 01/25/18 11:50 Urine Color YELLOW 01/25/18 11:50 Urine Clarity CLEAR (CLEAR) 01/25/18 11:50 Urine pH 7.0 (4.6 - 8.0) 01/25/18 11:50 Ur Specific [place] 1.010 (1.005-1.030) 01/25/18 11:50 Urine Protein NEGATIVE mg/dL (NEGATIVE) 01/25/18 11:50 Urine Glucose (UA) NEGATIVE mg/dL (NEGATIVE) 01/25/18 11:50 Urine Ketones NEGATIVE mg/dL (NEGATIVE) 01/25/18 11:50 Urine Blood NEGATIVE (NEGATIVE) 01/25/18 11:50 Urine Nitrate NEGATIVE (NEGATIVE) 01/25/18 11:50 Urine Bilirubin NEGATIVE (NEGATIVE) 01/25/18 11:50 Urine Urobilinogen 1.0 E.U./dL (0.2 - 1.0) 01/25/18 11:50 Ur Leukocyte Esterase TRACE (NEGATIVE) H 01/25/18 11:50 Urine RBC NONE SEEN /hpf (0-5) 01/25/18 11:50 Urine WBC 2-5 /hpf (0-5) 01/25/18 11:50 Ur Epithelial Cells OCCASIONAL /lpf (FEW) 01/25/18 11:50 Urine Bacteria FEW /hpf (NONE SEEN) 01/25/18 11:50 RPR NONREACTIVE (NONREACTIVE) 01/25/18 12:17 - Physical Exam Vitals and I&O: Vital Signs Temp 99.2 F 02/01/18 14:27 Pulse 95 02/01/18 14:27 Resp 20 02/01/18 14:27 BP 103/73 02/01/18 14:27 Pulse Ox 97 02/01/18 06:37 Intake & Output 01/31/18 02/01/18 02/01/18 18:59 06:59 18:59 Intake Total 1200 0 Balance 1200 0 Intake: Oral 1200 0 Other: # Voids 2 1 Active Medications: Current Medications Acetaminophen (Tylenol) 650 mg PO Q4HR PRN PRN Reason: Pain (Mild) Stop: 03/26/18 19:12 Last Admin: 02/01/18 15:05 Dose: 650 mg Acetaminophen/Hydrocodone Bitart ([place] 5mg/325mg) 1 tab PO Q6HR PRN PRN Reason: Pain (Moderate) Stop: 03/26/18 19:12 Al Hydrox/Mg Hydrox/Simethicone (Maalox) 30 ml PO Q4HR PRN PRN Reason: GI DISTRESS Stop: 03/26/18 17:04 Chlorhexidine Gluconate (Peridex) 15 ml MM BID [facility] Stop: 03/27/18 08:59 Last Admin: 02/01/18 09:21 Dose: Not Given Docusate Sodium (Colace) 100 mg PO DAILY [facility] Stop: 03/27/18 08:59 Last Admin: 02/01/18 09:21 Dose: Not Given Ibuprofen (Motrin) 800 mg PO Q8HR PRN PRN Reason: Pain (Mild) Stop: 03/26/18 19:12 Magnesium Hydroxide (Milk Of Magnesia) 30 ml PO PRN PRN PRN Reason: Constipation Stop: 03/26/18 19:12 Metoclopramide HCl (Reglan) 10 mg PO TID [facility] Stop: 03/26/18 20:59 Last Admin: 02/01/18 15:05 Dose: 10 mg Multivitamins/Vitamin C (Theragran) 1 tab PO DAILY [facility] Stop: 03/27/18 08:59 Last Admin: 02/01/18 09:21 Dose: Not Given Olanzapine (Zyprexa Zydis) 5 mg PO BID [facility]; Protocol Stop: 04/01/18 19:29 Last Admin: 02/01/18 09:22 Dose: Not Given Pantoprazole Sodium (Protonix) 40 mg PO QDAC [facility] Stop: 03/27/18 07:29 Last Admin: 02/01/18 06:29 Dose: Not Given Senna (Senna) 8.6 mg PO HS [facility] Stop: 03/26/18 20:59 Last Admin: 01/31/18 20:24 Dose: Not Given Sodium Chloride ([place] Nasal [place]) 1 spr NS Q4HR [facility] Stop: 03/26/18 19:59 Last Admin: 02/01/18 11:28 Dose: Not Given Trazodone HCl (Desyrel) 50 mg PO HS [facility]; Protocol Stop: 03/26/18 20:59 Last Admin: 01/31/18 20:24 Dose: Not Given Zolpidem Tartrate (Ambien) 5 mg PO HS PRN PRN Reason: Insomnia Stop: 03/26/18 17:04 Assessment/Plan - Problem List Patient Problems: All Active Problems Dysphagia (Acute) R13.10 Failure to thrive in adult (Acute) Nutritional Asmnt/Malnutr-PDOC - Dietary Evaluation Malnutrition Findings (Please click <Entered> for more info): Nutritional Asmnt/Malnutrition Start: 01/29/18 17: 15 Text: Status: Complete Freq: Protocol: Document 01/29/18 17:15 ANGELIQUEG (Rec: 01/29/18 17:20 LCHENG [email or web address]) Nutritional Asmnt/Malnutrition Patient General Information Nutritional Screening Moderate Risk Diagnosis psychosis Pertinent Medical Hx/Surgical Hx PUD/GERD, anxiety, dysphagia, hysterectomy, Subjective Information Pt seen lying in bed at time of visit, confused. Pt complained she was not able to take food, medication, body functions decreasing. Spoke with nurses, pt tolerated pureed diet, consumed 100% of breakfast in the morning. Per EMR, PO intake 75-100%, refused few meals since admission. Current Diet Order/ Nutrition Support pureed Pertinent Medications colace, reglan, theragran, protonix, seroquel, senna Pertinent Labs 01/25 Cr 0.5, gluose 102 Nutritional Hx/Data Height 1.57 m Height (Calculated Centimeters) 157.5 Current Weight (lbs) 66.678 kg Weight (Calculated Kilograms) 66.7 Weight (Calculated Grams) 23182.1 [place] Body Weight 110 Body Mass Index (BMI) 26.9 Weight Status Overweight GI Symptoms GI Symptoms None Last BM 01/26 Difficult in: None Skin Integrity/Comment: intact Current %PO Good (75-100%) Estimated Nutritional Goals BEE in Kcals: Using Current wt Calories/Kcals/Kg 23-27 Kcals Calculated 5346-4730 Protein: Using Current wt Protein g/k.8-1 Protein Calculated 54-67 Fluid: ml 1541-1809ml (1ml/kcal) Nutritional Problem No current Nutrition Prob Problem N/A Malnutrition Alert Is there a minimum of two criteria No selected? Query Text:Check all the applicable criteria. A minimum of two criteria are recommended for diagnosis of either severe or non-severe malnutrition. Intervention/Recommendation Comments 1. Continue with pureed diet as ordered. assist pt with lucien as needed. 2. Monitor PO intake, wt, labs and skin integrity 3. F/U as low risk in 7 days, 02/05, PO check 01/31 Expected Outcomes/Goals Expected Outcomes/Goals 1. PO intake to meet at least 75% of nutritional needs. 2. Wt stability, skin to remain intact, labs to approach WNL.
== END 2018-02-01 16:45 | DRG 885 ==
LOC: ER 11:08 → GERO 13:30
PROVIDERS: ADMIT Psychiatry & Neurology Psychiatry; ATTEND Psychiatry & Neurology Psychiatry
DX: F29 Unspecified psychosis not due to a substance or known physiological condition (principal); K21.9 Gastro-esophageal reflux disease without esophagitis; F41.9 Anxiety disorder, unspecified; R13.10 Dysphagia, unspecified; Z82.49 Family history of ischemic heart disease and other diseases of the circulatory system; Z90.710 Acquired absence of both cervix and uterus
CPT/HCPCS: 36415-UA; 80053-TC; 80061-TC; 81001-TC; 83036-90; 84443-TC; 85025-TC; 86592-TC; 93005; Z7610